=== PATIENT | female | born 1995 | race American Indian/Alaskan Native ===

== ENCOUNTER → 2017-07-19 | Emergency (ER) | payer OTHER ==
[~2017-07-19] VITALS: Ht 162.6 cm; Wt 71.2 kg
[~2017-07-19] MED LIST: ANAPROX DS550 MG PO; AZITHROMYCIN500 MG PO; BACLOFEN10 MG PO; BACTRIM DS TAB1 EACH PO; CLARITIN10 MG PO; DOXYCYCLINE HYC50 MG PO; IBUPROFEN200 M1 PO; IBUPROFEN800 MG PO; MACROBID 100 M100 MG PO; NORCO 5-325 TA1 EACH PO; ZOFRAN ODT8 MG PO
== END ==
LOC: ED 15:24
DX: Z13.89 Encounter for screening for other disorder (principal); Z87.891 Personal history of nicotine dependence; Z88.5 Allergy status to narcotic agent
CPT/HCPCS: 80053; 80176; 81001; 84443; 84703; 85025; 99285; G0480

== ENCOUNTER 2018-04-24 20:17 | Emergency (ER) | payer OTHER ==
[~2018-04-24] VITALS: Ht 162.6 cm; Wt 81.7 kg
[2018-04-24] MEDS ORDERED: ZYPREXA10 MG PO (20:35)
== END 2018-04-25 01:44 | disposition home or self-care (01) ==
LOC: ED 20:17
PROC: 0T9B70Z Drainage of Bladder with Drainage Device, Via Natural or Artificial Opening (ICD-10-PCS; principal; 2018-04-24)
DX: F10.129 Alcohol abuse with intoxication, unspecified (principal); F15.10 Other stimulant abuse, uncomplicated; Y90.8 Blood alcohol level of 240 mg/100 ml or more; F32.9 Major depressive disorder, single episode, unspecified; F41.9 Anxiety disorder, unspecified; Z88.5 Allergy status to narcotic agent; Z88.8 Allergy status to other drugs, medicaments and biological substances; Z87.891 Personal history of nicotine dependence; Z79.899 Other long term (current) drug therapy
CPT/HCPCS: 51701; 80053; 81001; 84703; 85025; 96360; 96361; 99283; G0480; J7030

== ENCOUNTER 2018-12-03 14:07 | Emergency (ER) | payer OTHER ==
[~2018-12-03] VITALS: Ht 162.6 cm; Wt 81.7 kg
[~2018-12-03 14:07] MED LIST changes: +ZYPREXA10 MG PO
== END 2018-12-03 17:28 | disposition home or self-care (01) ==
LOC: ED 14:07
DX: Z00.00 Encounter for general adult medical examination without abnormal findings (principal); Z88.5 Allergy status to narcotic agent; Z88.8 Allergy status to other drugs, medicaments and biological substances; F32.9 Major depressive disorder, single episode, unspecified; F41.9 Anxiety disorder, unspecified; Z79.899 Other long term (current) drug therapy
CPT/HCPCS: 80053; 80176; 81001; 84443; 84703; 85025; 99283; G0480

== ENCOUNTER 2018-12-28 13:18 | Emergency (ER) | payer OTHER ==
[~2018-12-28] VITALS: Ht 162.6 cm; Wt 81.7 kg
--- OUTSIDE RECORDS SUMMARY | 2018-12-28 13:22 | XMS ---
PreManage Notification: PAUL PIPER Security [place] Surfacer Events No recent Security Events currently on file CRITERIA MET - [facility] - Has Care Guidelines - [facility] - 2 Visits in 30 Days CARE PROVIDERS VALERIE VICTOR [facility] 10/10/2018-Current PHONE: Unknown UNABLE TO OBTAIN PCP Primary Care Current PHONE: Unknown Mohan has no Care Guidelines for this patient. Care History Medical/Surgical 10/10/2018 [facility] \T\middot;\T\nbsp; PATIENT IS A [employer] MEMBER. \T\middot;\T\nbsp; PLEASE REFER PATIENT TO [facility] FOR NON EMERGENT MEDICAL NEEDS. \T\middot;\ T\nbsp; [facility] CAN SEE PATIENTS SAME DAY FOR APTS IF PATIENT CALLS FIRST THING IN THE MORNING. E.D. VISIT COUNT (12 MO.) 4 [facility]ADA Mane TOTAL 4 NOTE: Visits indicate total known visits. ED/UCC VISIT TRACKING (12 MO.) 12/28/2018 13:19 [facility] [place] TYPE: Emergency COMPLAINT: - HEALTH ISSUES 12/03/2018 14:07 [facility] [place] TYPE: Emergency COMPLAINT: - MEDICAL CLEARANCE DIAGNOSES: - Allergy status to narcotic agent status - Encounter for general adult medical examination without abnormal findings - Allergy status to other drugs, medicaments and biological substances status - Anxiety disorder, unspecified - Major depressive disorder, single episode, unspecified - Other intermediate manager (current) drug therapy 10/09/2018 19:18 [facility] [place] TYPE: Emergency COMPLAINT: - INTOXICATED DIAGNOSES: - Other intermediate manager (current) drug therapy - Anxiety disorder, unspecified - Major depressive disorder, single episode, unspecified - Alcohol abuse with intoxication, unspecified - Blood alcohol level of 240 mg/100 ml or more 04/24/2018 20:18 [facility] [place] TYPE: Emergency COMPLAINT: - NON RESPONSIVE DIAGNOSES: - Anxiety disorder, unspecified - Allergy status to other drugs, medicaments and biological substances status - Personal history of nicotine dependence - Alcohol abuse with intoxication, unspecified - Alcohol abuse with intoxication, unspecified - Other senior care (current) drug therapy - Blood alcohol level of 240 mg/100 ml or more - Other stimulant abuse, uncomplicated - Allergy status to narcotic agent status - Major depressive disorder, single episode, unspecified INPATIENT VISIT TRACKING (12 MO.) No inpatient visits to display in this time frame [email or web address]
== END 2018-12-28 19:31 | disposition home or self-care (01) ==
LOC: ED 13:18
DX: T43.591A Poisoning by other antipsychotics and neuroleptics, accidental (unintentional), initial encounter (principal); R41.82 Altered mental status, unspecified; F32.9 Major depressive disorder, single episode, unspecified; F41.9 Anxiety disorder, unspecified; F43.10 Post-traumatic stress disorder, unspecified; Z88.5 Allergy status to narcotic agent; Z88.8 Allergy status to other drugs, medicaments and biological substances
CPT/HCPCS: 80053; 80176; 84703; 85025; 96360; 96361; 99284-25; G0480; J7030

== ENCOUNTER 2019-01-24 17:56 | Emergency (ER) | payer OTHER ==
[~2019-01-24] VITALS: Ht 162.6 cm; Wt 81.7 kg
--- OUTSIDE RECORDS SUMMARY | 2019-01-24 17:58 | XMS ---
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 \T\middot;\T\nbsp; PLEASE REFER PATIENT TO [facility] FOR NON EMERGENT MEDICAL NEEDS. \T\middot;\ T\nbsp; [facility] CAN SEE PATIENTS SAME DAY FOR APTS IF PATIENT CALLS FIRST THING IN THE MORNING. E.D. VISIT COUNT (12 MO.) 5 GHADA Mane TOTAL 5 NOTE: Visits indicate total known visits. ED/UCC VISIT TRACKING (12 MO.) 01/24/2019 17:56 [facility] [place] TYPE: Emergency COMPLAINT: - INTOXICATED 12/28/2018 13:19 [facility] [place] TYPE: Emergency COMPLAINT: - HEALTH ISSUES DIAGNOSES: - Major depressive disorder, single episode, unspecified - Allergy status to narcotic agent status - Poisoning by other antipsychotics and neuroleptics, accidental (unintentional), initial encounter - Altered mental status, unspecified - Anxiety disorder, unspecified - Post-traumatic stress disorder, unspecified - Allergy status to other drugs, medicaments and biological substances status 12/03/2018 14:07 [facility] [place] TYPE: Emergency COMPLAINT: - MEDICAL CLEARANCE DIAGNOSES: - Allergy status to narcotic agent status - Encounter for general adult medical examination without abnormal findings - Allergy status to other drugs, medicaments and biological substances status - Anxiety disorder, unspecified - Major depressive disorder, single episode, unspecified - Other truck terminal manager (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
== END 2019-01-25 00:30 | disposition home or self-care (01) ==
LOC: ED 17:56
DX: F10.129 Alcohol abuse with intoxication, unspecified (principal); F32.9 Major depressive disorder, single episode, unspecified; F41.9 Anxiety disorder, unspecified; F43.10 Post-traumatic stress disorder, unspecified; F42.9 Obsessive-compulsive disorder, unspecified; Z88.5 Allergy status to narcotic agent; Z88.8 Allergy status to other drugs, medicaments and biological substances
CPT/HCPCS: 80053; 80176; 81001; 84703; 85025; 99284; G0480

== ENCOUNTER 2019-10-28 10:34 | Emergency (ER) | payer OTHER ==
[~2019-10-28] VITALS: Ht 162.6 cm; Wt 81.6 kg
--- OUTSIDE RECORDS SUMMARY | ~2019-10-28 | XMS | Encounter Summary ---
Demographics + + + | Address | [address] | | | [place] [address] | + + + | Home Phone | | + + + | Preferred Language | Unknown | + + + | Marital Status | Single | + + + | Buddhism Affiliation | 1038 | + + + | Race | Unknown | + + + | Ethnic Group | Unknown | + + + Author + + + | Author | [facility] | | | and Charlyana | + + + | Organization | [facility] | | | and Charlyana | + + + | Address | Unknown | + + + | Phone | Unavailable | + + + Support + + +---------+ + | Name | Relationship | Address | Phone | + + +---------+ + | Beatriz Trevizo | ECON | Unknown | | + + +---------+ + | Beatrizcaprice Trevizo | ECON | Unknown | | + + +---------+ + | Jenniemoises Mitchell | ECON | Unknown | | + + +---------+ + Care Team Providers + +------+ + | Care Manager Integrity Name | Role | Phone | + +------+ + PCP | Unavailable | + +------+ + Encounter Details +--------+ + + + + | Date | Type | Department | Care Team | Description | +--------+ + + + + | 09/19/ | Hospital | [facility] | Joseph Fine, | | | 2006 | Encounter | MED CTR MP INTRA OP | [place] [address] | | | | | [address] | [place], [place] | | | | | [place], [place] | [address] | | | | | [address] | | | | | | [phone] | | | +--------+ + + + [...] on file | | + + + + + + + | Job Start Date | Occupation | Industry | + + + + | Not on file | Not on file | Not on file | + + + + + + + + | Travel History | Travel Start | Travel End | + + + + + + | No recent travel history available. | + + documented as of this encounter Plan of Treatment Not on filedocumented as of this encounter Visit Diagnoses Not on filedocumented in this encounter"
--- OUTSIDE RECORDS SUMMARY | ~2019-10-28 | XMS | Encounter Summary ---
Demographics + + + | Address | [address] | | | [place] [address] | + + + | Home Phone | | + + + | Preferred Language | Unknown | + + + | Marital Status | Single | + + + | Mandaen Affiliation | 1038 | + + + | Race | Unknown | + + + | Ethnic Group | Unknown | + + + Author + + + | Author | [facility] | | | and Charlyana | + + + | Organization | [facility] | | | and Charlyana [...] Team Providers + +------+ + | Care Director Of Student Aid Name | Role | Phone | + +------+ + PCP | Unavailable | + +------+ + Encounter Details +--------+ + + + + | Date | Type | Department | Care Team | Description | +--------+ + + + + | 12/15/ | Hospital | [facility] | Cole Baker MD | | | 2011 | Encounter | MED CTR EMERGENCY | [address] [place] | | | | | CENTER [address] | [address] [place], | | | | | [place], [place] | [place] [address] | | | | | [address] | [phone] | | | | | [phone] | | | +--------+ + + + [...]
--- OUTSIDE RECORDS SUMMARY | ~2019-10-28 | XMS | Encounter Summary ---
Demographics + + + | Address | [address] | | | [place] [address] | + + + | Home Phone | | + + + | Preferred Language | Unknown | + + + | Marital Status | Single | + + + | Jehovah'S Witness Affiliation | 1038 | + + + | Race | Unknown | + + + | Ethnic Group | Unknown | + + + Author + + + | Author | [facility] | | | and Charlyana | + + + | Organization | [facility] | | | and Charlyana [...] Team Providers + +------+ + | Care Parachute Manufacturing Supervisor Name | Role | Phone | + +------+ + PCP | Unavailable | + +------+ + Encounter Details +--------+ + + + + | Date | Type | Department | Care Team | Description | +--------+ + + + + | 06/06/ | Hospital | [facility] | Vasu Martin, | | | 2011 | Encounter | MED CTR EMERGENCY | [place] [address] | | | | | CENTER [address] | [facility] [place] | | | | | [place], [place] | [place] [address] | | | | | [address] | [phone] | | | | | [phone] | | | +--------+ + + + [...] + + documented as of this encounter Medications at Time of Discharge + + + +---------+ + + | Medication | Sig | Dispensed | Refills | Start | End Date | | | | | | Date | | + + + +---------+ + + | | 15 cc by mouth every | | 0 | 04/25/20 | | | HYDROcodone-acetamin | 4 hours as needed | | | 12 | | | ophen (LORTAB) 5-333 | for pain | | | | | | mg/10 mL solution | | | | | | + + + +---------+ + + documented as of this encounter Plan of Treatment Not on filedocumented as of this encounter Procedures + +--------+ + + + | Procedure Name | Priori | Date/Time | Associated Diagnosis | Comments | | | ty | | | | + +--------+ + + + | URINALYSIS, | Routin | 06/06/2012 | | Results for this | | MICROSCOPIC ONLY, | e | 5:49 PM | | procedure are in the | | WITH CULTURE IF | | PDT | | results section. | | INDICATED | | | | | + +--------+ + + + documented in this encounter Results Urinalysis, Microscopic Only, with Culture if Indicated (06/06/2012 5:49 PM PDT) + +-------+ + + + | Component | Value | Ref Range | Performed | Pathologist | | | | | At | Signature | + +-------+ + + + | COLLECTION | . | | [facility] | | | [facility] | | | | | | [facility] | | | | | | CENTER - | | | | | | LABORATORY | | + +-------+ + + + | WBC UA | 5-10 | 0 - 1 /hpf | [facility] | | | | | | [facility] | | | | | | MEDICAL | | | | | | CENTER - | | | | | | LABORATORY | | + +-------+ + + + | RBC UA | NONE | 0 - 4 /hpf | [facility] | | | | | | [facility]ICAL | | | | | | CENTER - | | | | | | LABORATORY | | + +-------+ + + + | SQUAMOUS | NONE | FEW /hps | [facility] | | [facility] | | | [facility] | | | MEDICAL | | | | | | CENTER - | | | | | | LABORATORY | | + +-------+ + + + | BACTERIA UA | NONE | NONE /hpf | [facility] | | | | | [facility] | | | | | | MEDICAL | | | | | | CENTER - | | | | | | LABORATORY | | + +-------+ + + + + + | Specimen | + + | | + + + + + + + | Performing | Address | City/State/Zipcode | Phone Number | | Organization | | | | + + + + + | [facility] | [address] | [place] | [phone] | | [facility] | | [address] | | | - LABORATORY | | | | + + + + + | [facility] | [address] | [place] | | | [facility] | | [address] | | | - LABORATORY | | | | + + + + + documented in this encounter Visit Diagnoses Not on filedocumented in this encounter"
--- OUTSIDE RECORDS SUMMARY | ~2019-10-28 | XMS | Encounter Summary ---
Demographics + + + | Address | [address] | | | [place] [address] | + + + | Home Phone | | + + + | Preferred Language | Unknown | + + + | Marital Status | Single | + + + | Anabaptism Affiliation | 1038 | + + + | Race | Unknown | + + + | Ethnic Group | Unknown | + + + Author + + + | Author | [facility] | | | and Charlyana | + + + | Organization | [facility] | | | and Charlyana | [...] Team Providers + +------+ + | Care Ball Mill Mixer Name | Role | Phone | + +------+ + PCP | Unavailable | + +------+ + Encounter Details +--------+ + + + + | Date | Type | Department | Care Team | Description | +--------+ + + + + | 05/24/ | Hospital | [facility] | Joseph Christie Maris, | | | 2011 | Encounter | MED CTR EMERGENCY | [place] [address] | | | | | [place] [address] | [place], [place] | | | | | [place], [place] | [address] | | | | | [address] | | | | | | [phone] | | | +--------+ + + + [...]
--- OUTSIDE RECORDS SUMMARY | ~2019-10-28 | XMS | Encounter Summary ---
Demographics + + + | Address | [address] | | | [place] [address] | + + + | Home Phone | | + + + | Preferred Language | Unknown | + + + | Marital Status | Single | + + + | Christian Affiliation | 1038 | + + + | Race | Unknown | + + + | Ethnic Group | Unknown | + + + Author + + + | Author | [facility] | | | and Charlyana | + + + | Organization | [facility] | | | and Charlyana [...] Team Providers + +------+ + | Care Mri Tech Name | Role | Phone | + +------+ + PCP | Unavailable | + +------+ + Encounter Details +--------+ + + + + | Date | Type | Department | Care Team | Description | +--------+ + + + + | 05/24/ | Hospital | [facility] | Joseph Christie Maris, | | | 2011 | Encounter | MED CTR EMERGENCY | [place] [address] | | | | | [place] [address] | [place], [place] | | | | | [place], [place] | [address] | | | | | [address] | | | | | | [phone] | | | +--------+ + + + [...]
--- OUTSIDE RECORDS SUMMARY | ~2019-10-28 | XMS | Clinical Summary ---
Demographics + + + | Address | [address] | | | [place] [address] | + + + | Home Phone | | + + + | Preferred Language | Unknown | + + + | Marital Status | Single | + + + | Protestant Affiliation | 1038 | + + + | Race | Unknown | + + + | Ethnic Group | Unknown | + + + Author + + + | Author | [facility] | | | and Charlyana | + + + | Organization | [facility] | | | and Charlyana | + + + | Address | Unknown | + + + | Phone | Unavailable | + + + Support + + +---------+ + | Name | Relationship | Address | Phone | + + +---------+ + | Beatriz Trevizo | ECON | Unknown | | + + +---------+ + | Beatriz Verdugos | ECON | Unknown | | + + +---------+ + | Jenniemoises Mitchell | ECON | Unknown | | + + +---------+ + Care Team Providers + +------+ + | Care Rotary Adjuster Name | Role | Phone | + +------+ + PCP | Unavailable | + +------+ + Allergies + + + +--------+ + | Active Allergy | Reactions | Severity | Noted | Comments | | | | | Date | | + + + +--------+ + | Clindamycin Hcl | | | | | + + + +--------+ + Medications + + + +---------+------+------+-------+ | Medication | Sig | Dispensed | Refills | Star | End | Statu | | | | | | t | Date | s | | | | | | Date | | | + + + +---------+------+------+-------+ | | 15 cc by mouth every | | 0 | 04/2 | | Activ | | HYDROcodone-acetamin | 4 hours as needed | | | 5/20 | | e | | ophen (LORTAB) 5-333 | for pain | | | 12 | | | | mg/10 mL solution | | | | | | | + + + +---------+------+------+-------+ Active Problems + + + | Problem | Noted Date | + + + | TONSILLITIS, CHRONIC | 02/25/2012 | + + + | PERITONSILLAR ABSCESS | | + + + Social History + +-------+ [...] recent travel history available. | + + Last Filed Vital Signs + + + [...] | | + + + + + Plan of Treatment + + + + + | Health Maintenance | Due Date | Last Done | Comments | + + + + + | Vaccine: HPV (1 - | | | | | Female 3-dose | 1 | | | | series) | | | | + + + + + | Vaccine: | | | | | Dtap/Tdap/Td (1 - | 5 | | | | Tdap) | | | | + + + + + | Cervical Cancer | | | | | Screening (Pap) | 7 | | | + + + + + | Vaccine: Influenza | | | | | (#1) | 9 | | | + + + + + Results Not on filefrom Last 3 Months
--- OUTSIDE RECORDS SUMMARY | ~2019-10-28 | XMS | Encounter Summary ---
Demographics + + + | Address | [address] | | | [place] [address] | + + + | Home Phone | | + + + | Preferred Language | Unknown | + + + | Marital Status | Single | + + + | Christian Affiliation | 1038 | + + + | Race | Unknown | + + + | Ethnic Group | Unknown | + + + Author + + + | Author | [facility] | | | and Charlyana | + + + | Organization | [facility] | | | and Charlyana | [...] Team Providers + +------+ + | Care It Portfolio Manager Name | Role | Phone | + +------+ + PCP | Unavailable | + +------+ + Encounter Details +--------+ + + + + | Date | Type | Department | Care Team | Description | +--------+ + + + + | 06/06/ | Hospital | [facility] | Vasu Martin, | | | 2011 | Encounter | MED CTR EMERGENCY | MD [address] | | | | | CENTER [address] | [facility] [place] | | | | | [place], [place] | [place] [address] | | | | | [address] | [phone] | | | | | [phone] | | | +--------+ + + + [...] [address] | [place] | [phone] | | [facility] | | [address] | | | - LABORATORY | | | | + + + + + | [facility] | [address] | [place] | | | [facility] | | [address] | | | - LABORATORY | | | | + + + + + documented in this encounter Visit Diagnoses Not on filedocumented in this encounter"
--- OUTSIDE RECORDS SUMMARY | ~2019-10-28 | XMS | Encounter Summary ---
Demographics + + + | Address | [address] | | | [place] [address] | + + + | Home Phone | | + + + | Preferred Language | Unknown | + + + | Marital Status | Single | + + + | Oriental Orthodox Affiliation | 1038 | + + + | Race | Unknown | + + + | Ethnic Group | Unknown | + + + Author + + + | Author | [facility] | | | and Charlyana | + + + | Organization | [facility] | | | and Charlyana | [...] Team Providers + +------+ + | Care Vice President Of Talent Acquisition Name | Role | Phone | + [...] | SR | | | | | [phone] | | | +--------+ + + + [...]
--- OUTSIDE RECORDS SUMMARY | ~2019-10-28 | XMS | Encounter Summary ---
Demographics + + + | Address | [address] | | | [place] [address] | + + + | Home Phone | | + + + | Preferred Language | Unknown | + + + | Marital Status | Single | + + + | Mormonism Affiliation | 1038 | + + + | Race | Unknown | + + + | Ethnic Group | Unknown | + + + Author + + + | Author | [facility] | | | and Charlyana | + + + | Organization | [facility] | | | and Charlyana | [...] Team Providers + +------+ + | Care Senior Copywriter Name | Role | Phone | + +------+ + PCP | Unavailable | + +------+ + Encounter Details +--------+ + + + + | Date | Type | Department | Care Team | Description | +--------+ + + + + | 03/18/ | Hospital | [facility] | Cole Baker MD | | | 2011 | Encounter | MED CTR MP INTRA OP | [address] [place] | | | | | [address] | [address] [place], | | | | | [place], [place] | [place] [address] | | | | | [address] | [phone] | | | | | [phone] | | | +--------+ + + + [...]
--- OUTSIDE RECORDS SUMMARY | ~2019-10-28 | XMS | Encounter Summary ---
Demographics + + + | Address | [address] | | | [place] [address] | + + + | Home Phone | | + + + | Preferred Language | Unknown | + + + | Marital Status | Single | + + + | Nondenominational Affiliation | 1038 | + + + | Race | Unknown | + + + | Ethnic Group | Unknown | + + + Author + + + | Author | [facility] | | | and Charlyana | + + + | Organization | [facility] | | | and [...] Team Providers + +------+ + | Care Carpenter Assembler Name | Role | Phone | + +------+ + PCP | Unavailable | + +------+ + Encounter Details +--------+ + + + + | Date | Type | Department | Care Team | Description | +--------+ + + + + | 09/19/ | Hospital | [facility] | Joseph Fine, | | | 2006 | Encounter | MED CTR MP INTRA OP | MD [address] | | | | | [address] | [place], [place] | | | | | [place], [place] | [address] | | | | | [address] | | | | | | [phone] | | | +--------+ + + + [...]
--- OUTSIDE RECORDS SUMMARY | ~2019-10-28 | XMS | Encounter Summary ---
Demographics + + + | Address | [address] | | | [place] [address] | + + + | Home Phone | | + + + | Preferred Language | Unknown | + + + | Marital Status | Single | + + + | Confucianist Affiliation | 1038 | + + + | Race | Unknown | + + + | Ethnic Group | Unknown | + + + Author + + + | Author | [facility] | | | and [place] | + + + | Organization | [facility] | | | and [...] Team Providers + +------+ + | Care Anatomic Pathologist Name | Role | Phone | + [...] | SR | | | | | [phone] | | | +--------+ + + + [...]
--- OUTSIDE RECORDS SUMMARY | ~2019-10-28 | XMS | Encounter Summary ---
Demographics + + + | Address | [address] | | | [place] [address] | + + + | Home Phone | | + + + | Preferred Language | Unknown | + + + | Marital Status | Single | + + + | Adventist Affiliation | 1038 | + + + | Race | Unknown | + + + | Ethnic Group | Unknown | + + + Author + + + | Author | [facility] | | | and [place] | + + + | Organization | [facility] | [...] Providers + +------+ + | Care Senior Network Engineer Name | Role | Phone | + +------+ + PCP | Unavailable | + +------+ + Encounter Details +--------+ + + + + | Date | Type | Department | Care Team | Description | +--------+ + + + + | 03/18/ | Hospital | [facility] | Cole Baker MD | | | 2011 | Encounter | MED CTR MP INTRA OP | [address] | | | | | [address] | [address] [place] [address], | | | | | [place], [place] | [place] [address] | | | | | [address] | [phone] | | | | | [phone] | | | +--------+ + + + [...]
--- OUTSIDE RECORDS SUMMARY | ~2019-10-28 | XMS | Clinical Summary ---
Demographics + + + | Address | [address] | | | [place] [address] | + + + | Home Phone | | + + + | Preferred Language | Unknown | + + + | Marital Status | Single | + + + | Roman Catholic Affiliation | 1038 | + + + | Race | Unknown | + + + | Ethnic Group | Unknown | + + + Author + + + | Author | [facility] | | | and [place] | + + + | Organization | [facility] | | | and [place] [...] Team Providers + +------+ + | Care Instructional Technologist Name | Role | Phone | + [...]
--- OUTSIDE RECORDS SUMMARY | ~2019-10-28 | XMS | Encounter Summary ---
Demographics + + + | Address | [address] | | | [place] [address] | + + + | Home Phone | | + + + | Preferred Language | Unknown | + + + | Marital Status | Single | + + + | Christian Affiliation | 1038 | + + + | Race | Unknown | + + + | Ethnic Group | Unknown | + + + Author + + + | Author | [facility] | | | and [place] | + + + | Organization | [facility] | | | and [place] [...] Team Providers + +------+ + | Care Server Assistant Name | Role | Phone | + +------+ + PCP | Unavailable | + +------+ + Encounter Details +--------+ + + + + | Date | Type | Department | Care Team | Description | +--------+ + + + + | 12/15/ | Hospital | [facility] | Cole Baker MD | | | 2011 | Encounter | MED CTR EMERGENCY | [address] | | | | | CENTER [address] | [address], | | | | | [place], [place] | [place] [address] | | | | | [address] | [phone] | | | | | [phone] | | | +--------+ + + + [...]
--- OUTSIDE RECORDS SUMMARY | 2019-10-28 10:36 | XMS ---
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 Care History Medical/Surgical 10/10/2018 [facility] \T\middot;\T\nbsp; PATIENT IS A [employer] MEMBER. \T\middot;\T\nbsp; PLEASE REFER PATIENT TO [facility] FOR NON EMERGENT MEDICAL NEEDS. \T\middot;\ T\nbsp; [facility] CAN SEE PATIENTS SAME DAY FOR APTS IF PATIENT CALLS FIRST THING IN THE MORNING. E.D. VISIT COUNT (12 MO.) 4 GHADA Mane TOTAL 4 NOTE: Visits indicate total known visits. ED/UCC VISIT TRACKING (12 MO.) 10/28/2019 10:35 [facility] [place] TYPE: Emergency COMPLAINT: - MEDICAL CLEARANCE 01/24/2019 17:56 [facility] [place] TYPE: Emergency COMPLAINT: - INTOXICATED DIAGNOSES: - Post-traumatic stress disorder, unspecified - Major depressive disorder, single episode, unspecified - Anxiety disorder, unspecified - Allergy status to oth drug/meds/biol subst status - Alcohol abuse with intoxication, unspecified - Allergy status to narcotic agent status - Obsessive-compulsive disorder, unspecified 12/28/2018 13:19 [facility] [place] TYPE: Emergency COMPLAINT: - HEALTH ISSUES DIAGNOSES: - Major depressive disorder, single episode, unspecified - Allergy status to narcotic agent status - Poisoning by oth antipsychot/neurolept, accidental, init - Altered mental status, unspecified - Anxiety disorder, unspecified - Post-traumatic stress disorder, unspecified - Allergy status to oth drug/meds/biol subst status 12/03/2018 14:07 [facility] [place] TYPE: Emergency COMPLAINT: - MEDICAL CLEARANCE DIAGNOSES: - Allergy status to narcotic agent status - Encntr for general adult medical exam w/o abnormal findings - Allergy status to oth drug/meds/biol subst status - Anxiety disorder, unspecified - Major depressive disorder, single episode, unspecified - Other termite treater helper (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
[2019-10-29] MEDS ORDERED: FLAGYL500 MG PO (15:02)
== END 2019-10-29 16:59 ==
LOC: ED 10:34
DX: F15.159 Other stimulant abuse with stimulant-induced psychotic disorder, unspecified (principal); F17.200 Nicotine dependence, unspecified, uncomplicated; Z88.5 Allergy status to narcotic agent; Z88.8 Allergy status to other drugs, medicaments and biological substances
CPT/HCPCS: 80053; 80176; 81001; 83690; 84439; 84443; 84703; 85025; 87491; 87591; 99285; G0480

== ENCOUNTER 2019-12-16 10:48 | Emergency (ER) | payer OTHER ==
[~2019-12-16 10:48] MED LIST changes: +FLAGYL500 MG PO
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
== END 2019-12-16 11:09 | disposition home or self-care (01) ==
LOC: ED 10:48
DX: Z53.21 Procedure and treatment not carried out due to patient leaving prior to being seen by health care provider (principal)

== ENCOUNTER 2019-12-21 14:34 | Emergency (ER) | payer OTHER ==
[~2019-12-21] VITALS: Ht 162.6 cm; Wt 81.6 kg
--- OUTSIDE RECORDS SUMMARY | 2019-12-21 14:38 | XMS ---
PreManage Notification: PAUL PIPER Security Storehouse Clerk Events No recent Security Events currently on file CRITERIA MET - Group Notification - [facility] - Has Care Guidelines - [facility] - 2 Visits in 30 Days CARE PROVIDERS VALERIE VICTOR [facility] 10/10/2018-Current PHONE: Unknown Name Unknown Clinic/Center 12/17/2019-Current PHONE: [phone] UNABLE TO OBTAIN PCP Primary Care Current PHONE: Unknown Mohan has no Care Guidelines for this patient. Care History Medical/Surgical 10/10/2018 [facility] \T\middot;\T\nbsp; PATIENT- [place] ELIGIBLE \T\middot;\T\nbsp; PLEASE REFER PATIENT TO [facility] FOR NON EMERGENT MEDICAL NEEDS. \T\middot;\ T\nbsp; [facility] CAN SEE PATIENTS SAME DAY FOR APTS IF PATIENT CALLS FIRST THING IN THE MORNING. [place] VISIT COUNT (12 MO.) 5 GHADA Mane TOTAL 5 NOTE: Visits indicate total known visits. ED/UCC VISIT TRACKING (12 MO.) 12/21/2019 14:35 [facility] [place] TYPE: Emergency COMPLAINT: - INTOXICATION, DRUG USE 12/16/2019 10:49 [facility] [place] TYPE: Emergency COMPLAINT: - MEDICAL CLEARANCE, LEFT WITHOUT BEING SEEN DIAGNOSES: - Proc/trtmt not crd out d/t pt lv [email or web address] 10/28/2019 10:35 [facility] [place] TYPE: Emergency [...] status - Obsessive-compulsive disorder, unspecified 12/28/2018 13:[address] [facility] [place] TYPE: Emergency COMPLAINT: - HEALTH ISSUES [...] visits to display in this time frame [email or web address]
== END 2019-12-21 20:49 | disposition home or self-care (01) ==
LOC: ED 14:34
DX: F10.129 Alcohol abuse with intoxication, unspecified (principal); F32.9 Major depressive disorder, single episode, unspecified; F41.9 Anxiety disorder, unspecified; F43.10 Post-traumatic stress disorder, unspecified; F17.200 Nicotine dependence, unspecified, uncomplicated; Z88.8 Allergy status to other drugs, medicaments and biological substances; Z88.5 Allergy status to narcotic agent; Z79.899 Other long term (current) drug therapy
CPT/HCPCS: 80053; 80176; 81001; 84443; 84703; 85025; 99284; G0480

== ENCOUNTER 2020-01-02 13:01 | Emergency (ER) | payer OTHER ==
[~2020-01-02] VITALS: Ht 162.6 cm; Wt 90.7 kg
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
== END 2020-01-02 14:38 | disposition home or self-care (01) ==
LOC: ED 13:01
DX: N93.9 Abnormal uterine and vaginal bleeding, unspecified (principal); F32.9 Major depressive disorder, single episode, unspecified; F41.9 Anxiety disorder, unspecified; F43.10 Post-traumatic stress disorder, unspecified; F17.200 Nicotine dependence, unspecified, uncomplicated; Z88.8 Allergy status to other drugs, medicaments and biological substances; Z88.5 Allergy status to narcotic agent
CPT/HCPCS: 81001; 84703; 99284

== ENCOUNTER 2020-09-08 16:56 | Emergency (ER) | payer OTHER ==
[~2020-09-08] VITALS: Ht 162.6 cm; Wt 72.6 kg
--- OUTSIDE RECORDS SUMMARY | ~2020-09-08 | XMS | Encounter Summary ---
Demographics + + + | Address | [address] | | | [place] [address] | + + + | Home Phone | | + + + | Preferred Language | Unknown | + + + | Marital Status | Single | + + + | Gnosticism Affiliation | 1038 | + + + | Race | or | + + + | Ethnic Group | Unknown | + + + Author + + + | Author | [facility] | | | and [place] | + + + | Organization | [facility] | | | and [place] | + + + | Address | Unknown | + + + | Phone | Unavailable | + + + Support + + +---------+ + | Name | Relationship | Address | Phone | + + +---------+ + | Beatriz Trevizo | ECON | Unknown | | + + +---------+ + | Beatriz Trevizo | ECON | Unknown | | + + +---------+ + | Jennie Mitchell | ECON | Unknown | | + + +---------+ + Care Team Providers + +------+ + | Care Inspector Returned Materials Name | Role | Phone | + +------+ + PCP | Unavailable | + +------+ + Encounter Details +--------+ + + + + | Date | Type | Department | Care Team | Description | +--------+ + + + + | 08/07/ | Abstract | [place] [facility] | [facility] | | | 2011 | | Conversion Location | SR | | | | | [address] | | | | | | [place], [place] | | | | | | [address] | | | | | | [phone] | | | +--------+ + + + + Social History + +-------+ +--------+------+ | Tobacco Use | Types | Packs/Day | Years | Date | | | | | Used | | + +-------+ +--------+------+ | Never Assessed | | | | | + +-------+ +--------+------+ + + + | Sex Assigned at | Date Recorded | | | | + + + | Not on file | | + + + documented as of this encounter Last Filed Vital Signs + + + + + | Vital Sign | Reading | Time Taken | Comments | + + + + + | Blood Pressure | 129/76 | 02/05/2012 12:00 AM | | | | | PDT | | + + + + + | Pulse | - | - | | + + + + + | Temperature | - | - | | + + + + + | Respiratory Rate | - | - | | + + + + + | Oxygen Saturation | - | - | | + + + + + | Inhaled Oxygen | - | - | | | Concentration | | | | + + + + + | Weight | 60.8 kg (134 lb) | 02/05/2012 12:00 AM | | | | | PDT | | + + + + + | Height | 166.4 cm (5' 5.5") | 02/05/2012 12:00 AM | | | | | PDT | | + + + + + | Body Mass Index | 21.96 | 02/05/2012 12:00 AM | | | | | PDT | | + + + + + documented in this encounter Plan of Treatment Not on filedocumented as of this encounter Visit Diagnoses Not on filedocumented in this encounter
--- OUTSIDE RECORDS SUMMARY | ~2020-09-08 | XMS | Encounter Summary ---
Demographics + + + | Address | [address] | | | [place] [address] | + + + | Home Phone | | + + + | Preferred Language | Unknown | + + + | Marital Status | Single | + + + | Yazdanism Affiliation | 1038 | + + + | Race | or | + + + | Ethnic Group | Unknown | + + + Author + + + | Author | [facility] | | | and [place] | + + + | Organization | [facility] | | | and [...] Team Providers + +------+ + | Care Aircraft Line Assembler Name | Role | Phone | + +------+ + PCP | Unavailable | + +------+ + Encounter Details +--------+ + + + + | Date | Type | Department | Care Team | Description | +--------+ + + + + | 09/19/ | Hospital | [facility] | Joseph Fine, | | | 2006 | Encounter | MED CTR MP INTRA OP | MD [address] | | | | | [address] | [place] | | | | | [place] | [address] | | | | | [address] | | | | | | [phone] | | | +--------+ + + + [...]
--- OUTSIDE RECORDS SUMMARY | ~2020-09-08 | XMS | Encounter Summary ---
Demographics + + + | Address | [address] | | | [place] [address] | + + + | Home Phone | | + + + | Preferred Language | Unknown | + + + | Marital Status | Single | + + + | Holiness Affiliation | 1038 | + + + | Race | or | + + + | Ethnic Group | Unknown | + + + Author + + + | Author | [facility] | | | and [place] | + + + | Organization | [facility] | | | and [...] Team Providers + +------+ + | Care Post Graduate Intern Name | Role | Phone | + +------+ + PCP | Unavailable | + +------+ + Encounter Details +--------+ + + + + | Date | Type | Department | Care Team | Description | +--------+ + + + + | 03/18/ | [facility] | [facility] | Cole Baker MD | | | 2011 | Encounter | MED CTR MP INTRA OP | [address] | | | | | [address] | [address] [place] | | | | | [place] | [address] | | | | | [address] | | | | | | [phone] | | | +--------+ + + + [...] + + documented as of this encounter Miscellaneous Notes Op Note - Cole Baker MD - 03/18/2012 7:48 AM PDTDATE: 03/18/2012 POSTOPERATIVE DIAGNOSIS Chronic tonsillitis with a history of recurrent peritonsillar abscess. POSTOPERATIVE DIAGNOSIS CHRONIC TONSILLITIS WITH A HISTORY OF RECURRENT PERITONSILLAR ABSCESS. OPERATION PERFORMED: Tonsillectomy. FINDINGS: The patient had a lot of scarred area on her right tonsil where the abscesses hav e occurred . She had a lot of cryptic debris in both tonsils. PROCEDURE: After the patient was placed under general anesthetic, the McIvor mouth gag was placed. Pe ritonsillar area was injected with 1% Xylocaine with epinephrine. Left tonsil wa s removed by incising its mucous membrane superior and anterior. It was dissected down to i ts base, removed with a tonsill ar snare. Bismuth pack was placed. Right tonsil was removed by incising its mucous membrane superior and anterior. It was dissected down to its base, removed with a tonsillar snare, and then a Bismuth p ack was placed. The nasopharynx was ex amined and no significant adenoids were noted to be present. Pa cks were removed and electr ocautery was used in both fossas to obtain good hemostasis. The nasal and oral cavity were washed well with saline. When good hemostasis was present, both fossas were painted with Vi scous Xylocaine. The patient was then awakened from her anesthetic and returned to the recov er y room in stable condition. PROGNOSIS: Immediate and remote is good. ESTIMATED BLOOD LOSS: 15 mL. DICTATED BY: Cole Baker MD Otolaryngology JOB #: [id number] EXT JOB #:[id number] <Electronicall y Signed by Cole Baker MD> 03/18/12 1458 documented in this encounter Plan of Treatment Not on filedocumented as of this encounter Visit Diagnoses Not on filedocumented in this encounter"
--- OUTSIDE RECORDS SUMMARY | ~2020-09-08 | XMS | Clinical Summary ---
Demographics + + + | Address | [address] | | | [place] [address] | + + + | Home Phone | | + + + | Preferred Language | Unknown | + + + | Marital Status | Single | + + + | Moravian Affiliation | 1038 | + + + | Race | or | + + + | Ethnic Group | Unknown | + + + Author + + + | Author | [facility] | | | and [place] | + + + | Organization | [facility] | | | [...] Team Providers + +------+ + | Care Shearing Machine Tender Name | Role | Phone | + [...] on file | | + + + Last Filed Vital Signs + [...] + + Plan of Treatment + + +-------+ + | Health Maintenance | Due Date | Last | Comments | | | | Done | | + + +-------+ + | Vaccine: HPV (1 - | | | | | 2-dose series) | 7 | | | + + +-------+ + | Vaccine: | | | | | Dtap/Tdap/Td (1 - | 5 | | | | Tdap) | | | | + + +-------+ + | Cervical Cancer | | | | | Screening (Pap) | 7 | | | + + +-------+ + | Vaccine: Influenza | | | | | (#1) | 0 | | | + + +-------+ + Results Not on filefrom Last 3 Months
--- OUTSIDE RECORDS SUMMARY | ~2020-09-08 | XMS | Encounter Summary ---
Demographics + + + | Address | [address] | | | [place] [address] | + + + | Home Phone | | + + + | Preferred Language | Unknown | + + + | Marital Status | Single | + + + | Anglican Affiliation | 1038 | + + + | Race | or | + + + | Ethnic Group | Unknown | + + + Author + + + | Author | [facility] | | | and [place] | + + + | Organization | [facility] | | | [...] Providers + +------+ + | Care Manager Java Name | Role | Phone | + +------+ + PCP | Unavailable | + +------+ + Encounter Details +--------+ + + + + | Date | Type | Department | Care Team | Description | +--------+ + + + + | 05/24/ | Hospital | [facility] | Joseph Christie, | | | 2011 | Encounter | MED CTR EMERGENCY | [place] [address] | | | | | [place] [address] | [place] | | | | | [place] | [address] | | | | | [address] | | | | | | [phone] | | | +--------+ + + + [...]
--- OUTSIDE RECORDS SUMMARY | ~2020-09-08 | XMS | Encounter Summary ---
Demographics + + + | Address | [address] | | | [place] [address] | + + + | Home Phone | | + + + | Preferred Language | Unknown | + + + | Marital Status | Single | + + + | Jainism Affiliation | [id number] | + + + | Race | or | + + + | Ethnic Group | Unknown | + + + Author + + + | Author | [facility] | | | and [place] | + + + | Organization | [facility] | | | [...] Team Providers + +------+ + | Care Journey Lineman Name | Role | Phone | + +------+ + PCP | Unavailable | + +------+ + Encounter Details +--------+ + + + + | Date | Type | Department | Care Team | Description | +--------+ + + + + | 06/06/ | Hospital | [facility] | Vasu Martin, | | | 2011 | Encounter | [facility] | [address] | | | | | [place] [address] | [facility] | | | | | [place] | [place] [address] | | | | | [address] | [phone] | | | | | [phone] | | | +--------+ + + + [...] + + documented as of this encounter ED Notes Shakila Victoria MD - 06/06/2012 4:56 PM PDTDATE: 06/06/2012 CHIEF COMPLAINT: The patient is a 16-year-old female who comes in from [facility] complaining of dysuria. HISTORY OF PRESENT ILLNESS: The patient states that she was seen and treated 2 days ago, w as started on Keflex for urinary tract infection. She states that she is continuing to have dysuria. She is denying any abnormal vaginal bleeding. She states that she is not having a ny abnormal vaginal discharge. She is just having frequency and burning. She has had these symptoms multiple times in the past. REVIEW OF SYSTEMS She is denying any decrease in appetite. No nausea, vomiting, diarrhea, no black or bloody stools, no fever, no chills, no cough, shortness of breath or chest pain. The patient stat es that she has never had a sexually transmitted disease, her last pelvic examination was february and she states that it was normal. She has never had an abnormal Pap or pelvic ex amination. PAST MEDICAL HISTORY: She, otherwise, has no other medical problems. SOCIAL HISTORY: She smokes a pack per day. She states that she binge drinks on occasion. CURRENT MEDICATIONS: She states that she takes Keflex currently now for her infection. ALLERGIES: SHE HAS AN ALLERGY TO AMOXICILLIN. PHYSICAL EXAMINATION VITAL SIGNS: The patient's vital signs are stable. Her temperature is 99.9, respiratory ra te 16, heart rate 90, blood pressure 123/70, she is 100% on room air. GENERAL: The patient is alert. She appears to be in no acute distress. HEENT: Essentially normal. The oropharynx is clear. CARDIOVASCULAR: She is regular rate and rhythm. ABDOMEN: Soft, nontender. There is no rebound, rigidity or guarding. BACK: Normal to inspection with no CVA tenderness. SKIN: Warm and dry. EXTREMITIES: Nontender. The patient had a urinalysis that her dip was initially read out as completely normal. I did send this down urine culture and had a microscopy done and this showed 5- 10 white b lood cells and culture has been sent. DIAGNOSIS: AT THIS POINT, PATIENT IS DIAGNOSED WITH PERSISTENT URINARY TRACT INFECTION. PLAN: She is to continue her current Keflex. Culture is pending. If another antibiotic is needed, we will notify. She needs to start phenazopyridine for her dysuria and drink lots o f fluids, especially cranberry. The patient voiced understanding of her discharge instructi ons and left to go back to juvenile halfway. DICTATED BY: Manny Victoria DO Emergency Medicine JOB #: [id number] EXT JOB #:[id number] <Electronicall y Signed by Mohinder Victoria DO> 06/15/12 1536 documented in this encounter Plan of Treatment [...] + | COLLECTION | . | | [facility] | | | [facility] | | | [facility] | | | | | | MEDICAL | | | | | | CENTER - | | | | | | LABORATORY | | + +-------+ + + + | White Blood | 5-10 | 0 - 1 /hpf | [facility] | | | Cells, | | | [facility] | | | Urine | | | MEDICAL | | | | | | CENTER - | | | | | | LABORATORY | | + +-------+ + + + | Red Blood | NONE | 0 - 4 /hpf | [facility] | | | Cells, | | | [facility] | | | Urine | | | MEDICAL | | | | | | CENTER - | | | | | | LABORATORY | | + +-------+ + + + | Squamous | NONE | FEW /hps | [facility] | | | Epithelial | | | [facility] | | | Cells, | | | MEDICAL | | | Urine | | | CENTER - | | | | | | LABORATORY | | + +-------+ + + + | Bacteria, | NONE | NONE /hpf | [facility] | | | Urine | | | [facility] | | [...] | + + + + + | [facility] | [address] | [place] | [phone] | | [facility] | | [address] | | | - LABORATORY | | | | + + + + + | [facility] | [address] | [place] | | | [facility] | | [id number] [place] [address] | | | - LABORATORY | | | | + + + + + documented in this encounter Visit Diagnoses Not on filedocumented in this encounter"
--- OUTSIDE RECORDS SUMMARY | ~2020-09-08 | XMS | Encounter Summary ---
Demographics + + + | Address | [address] | | | [place] [address] | + + + | Home Phone | | + + + | Preferred Language | Unknown | + + + | Marital Status | Single | + + + | Gnosticist Affiliation | [id number] | + + + | Race | or | + + + | Ethnic Group | Unknown | + + + Author + + + | Author | [facility] | | | and [place] | + + + | Organization | [facility] | | | [...] Team Providers + +------+ + | Care Ergonomist Name | Role | Phone | + +------+ + PCP | Unavailable | + +------+ + Encounter Details +--------+ + + + + | Date | Type | Department | Care Team | Description | +--------+ + + + + | 12/15/ | Hospital | [facility] | Cole Baker MD | | | 2011 | Encounter | MED CTR EMER[facility]ENCY | [address] | | | | | CENTER [address] | [address] [place] | | | | | [place] | [address] | | | | | [address] | | | | | | [phone] | | | +--------+ + + + [...] documented as of this encounter ED Notes Cole Baker MD - 12/15/2011 11:00 AM PSTDATE: 12/15/2011 EMERGENCY ROOM VISIT / PROCEDURE The patient started to have a lot of problems with throat infection back about six days ago . She was started on some penicillin about four days ago, but in spite of this, continued t o get increasing pro blems with pain and discomfort in her throat area, particularly in the right-hand side. Over the last 24 hours, she has had problems being able to swallow and ge t fluids down. She has had an extreme gee unt of pain. She was seen in the emergency room at the [facility] and sent on to have an ENT con sult. The patient had a peritonsillar abscess previously back a couple years ago and now has one again. She has had problems intermittently with recurrent tonsillar infections. [facility] other [facility]. The patient had her gallbladder removed four months ago. She has had a fair amount of probl ems with u pset stomach, and this also may relate to chronic tonsillar disease, certainly c ould still be from an abdominal basis. EXAMINATION GENERAL: The examination shows an alert 16-year-old patient accompanied by her father. She is in a lo t of pain and discomfort. She has problems opening her mouth. She has a old or p resent from the infec tion. NECK: The neck was giving a fair amount of discomfort, and no other problems noted. She has no nuchal rigidity. HEENT: The nasal passages were open and clear. The patient has obvious swelling in the righ t peritons illar area with a question of peritonsillar abscess. The teeth, lips, and gums o therwise were healthy . Hydration seemed at least borderline. PROCEDURE NOTE: The throat initially was sprayed multiple times with Cetacaine to the point that luis angel lly the patient could open her mouth and, once this was completed, the peritonsi llar area was injecte d with 1 ml of 1% Xylocaine with epinephrine into the abscessed area. Following this, a number 18 gau ge needle was used and 9 mL of purulent material was remov ed showing a very large abscess. Once remov ed, the patient was still in a lot of pain and discomfort, so she was given an injection of pain medi cation to help settle down the pain. FINAL IMPRESSION RIGHT PERITONSILLAR ABSCESS. PLAN: The patient placed on clindamycin 450 mg 3 times a day for the next 10 days. She is r eceiving 9 00 mg of clindamycin IV at the present time and a liter of fluid. Prescriptions for Lortab elixir, and Viscous Xylocaine, Mylanta, and Benadryl mixture have also been written for the patient to help her over the next 48 hours. She should recheck wi th ENT if not improv ing over the next 48 hours. She needs to schedule with ENT to have her tonsils removed seeing this is a second peritonsillar abscess. DICTATED BY: Cole Baker MD Otolaryngology JOB #: [id number] EXT JOB #:[id number] <Electronicall y Signed by Cole Baker MD> 12/18/11 1652 documented in this encounter Plan of Treatment Not on filedocumented as of this encounter Visit Diagnoses Not on filedocumented in this encounter"
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
--- NOTE | 2020-09-10 15:19 | EKG ---
[facility] [address] [place], [place] [address] Signed Normal sinus rhythm with sinus arrhythmia Normal ECG No previous ECGs available Confirmed by KINA GIL DO ([id number]) on 09/10/2020 11:01:25 AM Electronically Signed By: KINA GIL DO 09/10/20 1519 PATIENT NAME: VERONIQUEPAUL Quiñones Electrocardiogram DATE OF : [birth year] PHYSICIAN: KINA GIL DO REPORT #: [id number] REPORT IS CONFIDENTIAL AND NOT TO BE RELEASED WITHOUT AUTHORIZATION
== END 2020-09-10 10:58 | disposition short-term general hospital (02) ==
LOC: ED 16:56
DX: F29 Unspecified psychosis not due to a substance or known physiological condition (principal); Z20.828 Contact with and (suspected) exposure to other viral communicable diseases; F17.200 Nicotine dependence, unspecified, uncomplicated; Z88.8 Allergy status to other drugs, medicaments and biological substances; Z88.5 Allergy status to narcotic agent
CPT/HCPCS: 80053; 80176; 81001; 84443; 84703; 85025; 93005; 93010; 96372; 99285-25; C9803; G0480; J1630; U0003

== ENCOUNTER 2023-11-12 10:05 | Emergency (ER) | payer OTHER ==
[~2023-11-12] VITALS: Ht 162.6 cm; Wt 89.1 kg
[~2023-11-12 10:05] MED LIST changes: +CLONAZEPAM0.5 MG PO; +LEVOTHYROXINE100 MCG PO; +MAPAP500 MG PO
[2023-11-12 13:39] VITALS: BP 124/78
== END 2023-11-12 13:39 | disposition home or self-care (01) ==
LOC: ED 10:05
DX: S01.21XA Laceration without foreign body of nose, initial encounter (principal); F41.9 Anxiety disorder, unspecified; Z88.5 Allergy status to narcotic agent; Z88.6 Allergy status to analgesic agent; Z88.8 Allergy status to other drugs, medicaments and biological substances; Z79.890 Hormone replacement therapy; W22.8XXA Striking against or struck by other objects, initial encounter
CPT/HCPCS: 12013; 99282

== ENCOUNTER 2025-04-26 17:43 | Emergency (ER) | payer OTHER ==
[~2025-04-26] VITALS: Ht 162.6 cm; Wt 73.0 kg
[2025-04-26 18:09] LABS: BASOPHILS 0.3 % (0.1-1.2); EOSINOPHILS 0 % (0.7-5.8); HEMATOCRIT 36.2 % (34.1-44.9); HEMOGLOBIN 11.8 g/dL (11.2-15.7); MCH 27.4 PG (25.6-32.2); MCHC 32.6 g/dL (32.2-35.5); MCV 84.2 fL (79.4-94.8); MONOCYTES 3.8 % (4.7-12.5); NEUTROPHILS 71.5 % (34.0-71.1); PLATELET COUNT 192 K/uL (182-369)
[2025-04-26 18:31] LABS: ABO A; RH POSITIVE
[2025-04-26 18:37] LABS: BILIRUBIN, URINE NEGATIVE (negative); BLOOD/HGB, URINE SMALL (Negative); KETONE, URINE NEGATIVE (Negative); LEUK ESTERASE, URINE NEGATIVE (negative); NITRITE, URINE NEGATIVE (negative)
[2025-04-26 18:43] LABS: BACTERIA, URINE 2+ /hpf (negative); CASTS, URINE NONE SEEN \\lpf; COLLECTION TYPE, URINE CLEAN CATCH; CRYSTALS, URINE NONE SEEN (0-1+); EPITHELIAL CELLS, URINE NONE SEEN /lpf (0-1+); RED BLOOD CELLS, URINE 0-1 /hpf (0-5); REFLEX CULTURE, URINE Yes (No); WHITE BLOOD CELLS, URINE 0-1 /HPF (0-5)
[2025-04-26 18:44] LABS: ALBUMIN 3.1 g/dL (3.4-5.0); ALBUMIN/GLOBULIN RATIO 0.78 (1.1-2.4); ANION GAP 16.3 (7-21); BILIRUBIN, TOTAL 0.2 mg/dL (0.2-1.0); BUN/CREATININE RATIO 7.5 (6.0-28.6); CALCIUM 8.6 mg/dL (8.5-10.1); CREATININE, SERUM 0.8 mg/dL (0.55-1.02); POTASSIUM 3.3 mmol/L (3.5-5.1); PROTEIN, TOTAL 7.1 g/dL (6.4-8.2)
[2025-04-26 19:10] VITALS: BP 122/80
[2025-04-26 20:05] LABS: N. GONORRRHOEAE BY PCR NOT DETECTED (NOT DETECT)
== END 2025-04-26 19:10 | disposition left against medical advice (07) ==
LOC: ED 17:43
PROVIDERS: Emergency Medicine
DX: O20.0 Threatened abortion (principal); F43.10 Post-traumatic stress disorder, unspecified; I95.9 Hypotension, unspecified; Z3A.01 Less than 8 weeks gestation of pregnancy; Z79.899 Other long term (current) drug therapy; Z88.5 Allergy status to narcotic agent; Z88.6 Allergy status to analgesic agent; Z88.8 Allergy status to other drugs, medicaments and biological substances
CPT/HCPCS: 36415; 76801; 76817; 80053; 81001; 84702; 85025; 86900; 86901; 87088; 99284-25